=== PATIENT | female | born 1995 | race Caucasian/White ===

== ENCOUNTER 2022-01-03 14:27 | Emergency (ER) | payer OTHER, SELFPAY ==
[2022-01-03 14:45] VITALS: BP 124/76; PULSE 140; RESP 20; TEMP 37.6; O2SAT 100
--- NOTE | 2022-01-03 15:26 | ED.GENADULT ---
HPI - General Adult General Chief complaint: Abdominal Pain Stated complaint: vomiting,diarrhea Time Seen by Provider: 01/03/22 14:54 Source: patient and RN notes reviewed Mode of arrival: ambulatory Limitations: no limitations History of Present Illness HPI narrative: Patient presents today complaining of nausea, vomiting, diarrhea that started at 2345 last night and has lasted until 645 this morning. Patient states she has vomited 9 times and had diarrhea at least 9 times since onset. She also states that during this time she has been having panic attacks because she is worried about how sick she is. States her urine is very dark-colored. Reports she had some abdominal cramping early on, but this has since resolved. She took an at home test that came out positive. She is also been alternating between hot and cold and is having some dizziness as well. Her LMP is 12/09/2021. Patient states she does have history of anxiety currently undergoing any treatment. History of one panic attack in the past when her child had COVID-19. MD complaint: Vomiting and diarrhea Related Data Allergies Allergy/AdvReac Type Severity Reaction Status Date / Time No Known Allergies Allergy Verified 01/03/22 15:45 Review of Systems Review of Systems: CONSTITUTIONAL: Denies body aches, fever, chills, or sweats. EYES: Denies visual changes, redness, or discharge. ENT: Denies rhinorrhea, congestion, sore throat, or otalgia. CARDIOVASCULAR: Denies chest pain, palpitations, or edema. RESPIRATORY: Denies cough or dyspnea. GASTROINTESTINAL: Denies abdominal pain. + Nausea, vomiting, diarrhea GENITOURINARY: Denies dysuria or hematuria.+ Dark-colored urine SKIN: Denies rash, itching, or wounds. MUSCULOSKELETAL: Denies back pain, joint pain, or myalgia. NEUROLOGIC: Denies headache, numbness, tingling, or weakness. PSYCH: + Anxiety PMFSH Past Medical History Medical History (Updated 01/03/22 @ 16:52 by Rosemary Howard, HIGH [employer]CHO[employer] GUIDANCE COUNSELOR, ) Anxiety Comments At time of signature, I have reviewed and agree with nursing past medical, surgical, social and family history unless otherwise noted. Please see nursing chart for further information. There is no relevant family history pertinent to the presenting complaint Exam Narrative: GENERAL: Ill-appearing, well-nourished, and in no acute distress. HEAD: Normocephalic, atraumatic. EYES: EOMI. No redness or drainage. Conjunctivae normal. ENT: Mucous membranes pink and tacky. Nares clear. No rhinorrhea. Throat normal. Uvula midline. NECK: Normal AROM. Supple. No lymphadenopathy. CHEST: No respiratory distress. Clear to auscultation. HEART: Regular rhythm. + Tachycardia. No murmur appreciated. Normal peripheral pulses. ABDOMEN: Soft, nontender, nondistended, normal active bowel sounds. MUSCULOSKELETAL: No bony tenderness. EXTREMITIES: Normal range of motion. No edema. SKIN: Warm, dry, no rash. Capillary refill normal. Normal skin turgor. NEURO: No focal deficits. Alert and oriented x3. Gait steady. PSYCH: Anxious Course Course Emergency Course: 1644- Patient states she is feeling much better after Phenergan IM and 1L NS through her IV. Her nausea is gone and she was able to take a short nap. Discussed diagnosis of viral gastroenteritis. Will send her home with prescription for oral Phenergan. Anticipatory guidance given. I did request that patient's vital signs be rechecked prior to her discharge, but this was not completed. Level of Care: Express Care Visit Vital Signs Vital signs: Vital Signs Temperature 99.7 F H 01/03/22 14:45 Pulse Rate 140 H 01/03/22 14:45 Respiratory Rate 20 01/03/22 14:45 Blood Pressure 124/76 01/03/22 14:45 Pulse Oximetry 100 01/03/22 14:45 Temperature 99.7 F H 01/03/22 14:45 Pulse Rate 140 H 01/03/22 14:45 Respiratory Rate 20 01/03/22 14:45 Blood Pressure 124/76 01/03/22 14:45 Pulse Oximetry 100 01/03/22 14:45 Reviewed. Pt pavon
[2022-01-03] MEDS: PROMETHAZINE HCL 25 MG/ML AMPUL IM (15:29)
[2022-01-03] MEDS: SODIUM CHLORIDE 0.9% IV 1,000 ML 999 ML IV CONT (15:33)
--- NOTE | 2022-01-03 16:27 | PC.NURSE ---
1609- rounded on pt. Pt states, she is feeling a little better. IV site clear, occlusive, patent, reports site is pain free. Will continue to monitor pt.
--- NOTE | 2022-01-06 16:28 | PC.NURSE ---
late entry note: 01/03/2022 16:40- 1000mL infused
== END 2022-01-03 16:57 | disposition home or self-care (01) ==
PROVIDERS: Emergency Provider Nurse Practitioner; PCP Family Medicine Sports Medicine
DX: K52.9 Noninfective gastroenteritis and colitis, unspecified (principal); E86.0 Dehydration; F41.0 Panic disorder [episodic paroxysmal anxiety]
CPT/HCPCS: 81003; 81025; 96360; 96372; 99203; G0463; J2550; J7030